=== PATIENT | male | born 1965 | race Caucasian/White ===

== ENCOUNTER 2022-08-30 08:36 | Outpatient (REF) | payer BC, SELFPAY ==
--- NOTE | ~2022-08-30 | XR_ITS ---
EXAMINATION: XR LUMBOSACRAL SPINE CLINICAL INFORMATION: Lumbago with sciatica. COMPARISON: None available. TECHNIQUE: AP and lateral (neutral, flexion and extension) views of the lumbosacral spine are submitted. FINDINGS: There is bony demineralization. There is a marked lumbar rotatory levoscoliosis. There has been a prior posterior fusion at L3-L4, with intact posterior fixator rods and pedicular screws. Disc spacers are noted at L3-L4 and L4-L5. There is no hardware failure or loosening. No acute fracture or spondylolisthesis is seen. There is multi-level degenerative disc disease, most pronounced at T12-L1 through L2-L3. The posterior elements are intact. There are aortoiliac atherosclerotic calcifications. Bilateral iliac stent material is noted. There are upper abdominal surgical clips. XR/XR lumbar spine 4V min IMPRESSION: There is a marked lumbar rotatory levoscoliosis. Postoperative changes are noted of the lumbar spine, as detailed. No hardware failure or loosening is seen. There is multi-level thoracolumbar degenerative disc disease, spondylosis and facet arthropathy.
== END 2022-08-30 08:37 | disposition home or self-care (01) ==
LOC: HO.HOSX 08:36
PROVIDERS: Visit Provider Physician Assistant
DX: M54.40 Lumbago with sciatica, unspecified side (principal); Z47.89 Encounter for other orthopedic aftercare; Z87.39 Personal history of other diseases of the musculoskeletal system and connective tissue
CPT/HCPCS: 72110

== ENCOUNTER 2022-09-24 14:33 | Outpatient (REF) | payer BC, SELFPAY | END 2022-09-24 14:34 | disposition home or self-care (01) | LOC: HO.HOSX 14:33 | PROVIDERS: PCP Family Medicine; Visit Provider Physician Assistant | DX: Z13.89 Encounter for screening for other disorder (principal) ==

== ENCOUNTER 2022-09-27 07:52 | Outpatient (REF) | payer BC, SELFPAY ==
--- NOTE | ~2022-09-27 | XR_ITS ---
EXAMINATION: XR LUMBOSACRAL SPINE WITH OBLIQUES CLINICAL INFORMATION: Scoliosis COMPARISON: Previous x-ray August 2022 TECHNIQUE: AP and lateral views of the spine FINDINGS: There is curvature of the lumbar spine to the left with apex at L3-L4. There are postsurgical changes at L3-L4 with posterior fusion hardware with bilateral interpedicular screws and rods and intervertebral body disc interspace. There is a disc interspace at L4-L5. Hardware appears intact without evidence of fracture or loosening. There is degenerative disc disease and spondylosis at T12 L1 L2 and L1-L2. There is degenerative disc disease at L5-S1. There is lower lumbar spine facet arthritis. There are bilateral iliac vascular stents. XR/XR lumbar spine 4V min IMPRESSION: Postsurgical change at L3-L4 and L4-L5. Scoliosis and multilevel degenerative changes.
== END 2022-09-27 07:53 | disposition home or self-care (01) ==
LOC: HO.HOSX 07:52
PROVIDERS: Visit Provider Physician Assistant
DX: M41.20 Other idiopathic scoliosis, site unspecified (principal)
CPT/HCPCS: 72110

== ENCOUNTER 2022-11-29 12:23 | Outpatient (REF) | payer BC, SELFPAY ==
--- NOTE | ~2022-11-29 | XR_ITS ---
EXAMINATION: XR LUMBOSACRAL SPINE CLINICAL INFORMATION: Reason for Exam M41.20 - Other idiopathic scoliosis, site unspecified COMPARISON: Lumbar spine radiographs 09/24/2022 TECHNIQUE: 4 views of the lumbar spine FINDINGS: 5 nonrib-bearing lumbar-type vertebral bodies. Status post L3-L4 discectomy and posterior spinal fusion with L3-L4 and L4-L5 interbody disc spacers. Stable mild lucency surrounding the L3 surgical screws which could reflect hardware loosening. No instability on flexion extension views. Vertebral body heights are maintained. S-shaped scoliosis of the visualized thoracolumbar spine. Moderate multilevel degenerative disc disease with loss of disc space height and facet arthropathy. Atherosclerotic calcifications of the abdominal aorta. Iliac artery stents. XR/XR lumbar spine 4V min IMPRESSION: 1. Status post L3-L4 discectomy and posterior spinal fusion with L3-L4 and L4-L5 interbody disc spacers. Stable mild lucency surrounding the L3 surgical screws which could reflect hardware loosening. 2. S-shaped scoliosis of the visualized thoracolumbar spine. Moderate multilevel degenerative disc disease.
== END 2022-11-29 12:24 | disposition home or self-care (01) ==
LOC: HO.HOSX 12:23
PROVIDERS: Visit Provider Physician Assistant
DX: M41.20 Other idiopathic scoliosis, site unspecified (principal)
CPT/HCPCS: 72110

== ENCOUNTER 2023-09-17 14:08 | Outpatient (AMB) | payer BC, SELFPAY ==
--- NOTE | 2023-09-17 14:36 | A.SPINEOV_ITS ---
Intake Visit Reasons: lumbar radiculopathy worsening Intake Note: Mr. López is here today c/o back pain worsening. Corporate Associate Attorney Required: No Allergies Penicillins Allergy (Unknown, Verified 09/17/23 14:41) Hives Assessment & Plan Assessment & Plan (1) Back pain of lumbar region with sciatica: Code(s): M54.40 - Lumbago with sciatica, unspecified side Category: Medical Plan Dear colleague, On 09/17/2023, I saw Vj López for severe left lumbar radiculopathy. Patient had appears L3-4 lumbar fusion done. He recovered well. He was last seen in November for mild lumbar radiculopathy. MRI was the night. He states that six weeks ago he lifted the table and he felt a large pop in his back followed by severe pain radiating down his leg. The pain radiates from his buttock down to the outside of his lower leg and top of his foot. The pain is associated w ith numbness and also noticed a mild footdrop. He can not get comfortable. He constantly wakes up at night from severe pain. On exam, he has an antalgic gait towards the right side. Straight leg raising is positive with radiating pain in his left leg. There is hypoesthesia in the L5 dermatome and a grade 4/5 weakness of the EHL on the left side. I suspect this patient developed an herniated disc below the level of the fusion. The symptoms have been present for more than 6 weeks and are not improving despite lifestyle modifications ( he can not be active due to the pain). Moreover there are neurological deficits present. We will order an MRI to be done at [facility] and will follow up with the patient. I spent 30 my minutes in his consult for history physical and discussing plan of care. Geremias Chong MD, PhD Spine Fellowship Trained Neurosurgeon Director, [facility] Orders: Orders MR lumbar spine wo con Today M51.06 - Intervertebral disc disorders with myelopathy, lumbar region, M54.40 - Lumbago with sciatica, unspecified side Coding Level of Care Code Est Pt Level 3 (61448) Diagnoses Back pain of lumbar region with sciatica M54.40
== END 2023-09-17 15:57 | disposition home or self-care (01) ==
PROVIDERS: PCP Family Medicine; Visit Provider Neurological Surgery
DX: M54.40 Lumbago with sciatica, unspecified side (principal)
CPT/HCPCS: 99213

== ENCOUNTER → 2023-09-17 14:08 | Outpatient (BNVA) | payer BC, SELFPAY | PROVIDERS: PCP Family Medicine; Visit Provider Neurological Surgery ==

== ENCOUNTER 2023-11-24 13:14 | Outpatient (AMB) | payer BC, SELFPAY ==
--- NOTE | 2023-11-24 13:21 | HO.SPINEOV ---
Intake Visit Reasons: MRI f/u Intake Note: Mr. López is here today to F/u on his MRI. Regulatory Affairs Internship Required: No Allergies Penicillins Allergy (Unknown, Verified 11/24/23 13:34) Hives Assessment & Plan Assessment & Plan (1) Lumbar disc herniation with myelopathy: Code(s): M51.06 - Intervertebral disc disorders with myelopathy, lumbar region Category: Medical Plan Mr López is back in the office today for follow-up. He underwent his MRI and it shows postsurgical changes from L2-L5, no significant acute finding, there is some disc degeneration on the left at L5-S1 but no significant foraminal stenosis that I can see. There is some compression of the left S1 nerve root but it is not profound. The patient's symptoms radiate mostly down into the front of his thigh so I do not think this fits with a dermatome. None of the pain radiates down to his foot. I am not sure if this is some kind of pseudo radiculopathy secondary to the twisting motion that led to the pain in the 1st place but I do not see anything operative. I sent him for standing flexion-extension x-rays and I do not see any change in the position of the hardware from last year. Obviously he has significant scoliotic curvature above his fusion but that does not appear to be change. I will review the films and get back to the patient after speak to Dr. Chong to see if he has any other thoughts. Total amount of time spent in this visit was 20 minutes in discussion of symptoms, lumbar MRI and x-ray imaging results and subsequent plan of care Stan Chong MD,PhD [facility] Orders: Orders XR lumbar spine 4V min Today M51.06 - Intervertebral disc disorders with myelopathy, lumbar region Coding Level of Care Code Est Pt Level 3 (27267) Diagnoses Lumbar disc herniation with myelopathy M51.06
== END 2023-11-24 15:13 | disposition home or self-care (01) ==
PROVIDERS: PCP Family Medicine; Visit Provider Physician Assistant
DX: M51.06 Intervertebral disc disorders with myelopathy, lumbar region (principal)
CPT/HCPCS: 99213

== ENCOUNTER 2023-11-24 13:14 | Outpatient (REF) | payer BC, SELFPAY ==
--- NOTE | ~2023-11-24 | XR_ITS ---
EXAMINATION: XR LUMBOSACRAL SPINE WITH FLEXION AND EXTENSION VIEWS CLINICAL INFORMATION: Intervertebral disc disorder with myelopathy, lumbar region COMPARISON: Lumbar spine 11/29/2022 TECHNIQUE: AP, lateral, lateral flexion and extension views of the lumbar spine FINDINGS: 5 nonrib-bearing lumbar-type vertebral bodies is seen. S-shaped scoliosis of the visualized thoracolumbar spine. The patient is status post L3-L4 discectomy and posterior spinal fusion with L3-L4 and L4-L5 interbody disc spacers. Stable mild lucency surrounding the L3 surgical screws which could reflect hardware loosening. No instability on flexion and extension views. The height of vertebral bodies is well-maintained. Moderate multilevel degenerative disc disease with loss of disc space height and facet arthropathy. There is atherosclerotic calcification of the abdominal aorta and bilateral iliac artery stents. XR/XR lumbar spine 4V min IMPRESSION: 1. Status post L3-L4 discectomy and posterior spinal fusion with L3-L4 and L4-L5 interbody disc spacers stable mild lucency surrounding the L3 surgical screws which could reflect hardware loosening. 2. S-shaped scoliosis of the visualized thoracolumbar spine. Moderate multilevel degenerative disc disease.
== END 2023-11-24 13:15 | disposition home or self-care (01) ==
LOC: HO.HOSX 13:14
PROVIDERS: PCP Family Medicine; Visit Provider Physician Assistant
DX: M51.06 Intervertebral disc disorders with myelopathy, lumbar region (principal)
CPT/HCPCS: 72110